=== PATIENT | male | born 2000 | race Caucasian/White ===

== ENCOUNTER 2021-01-21 03:39 | Emergency (ER) | payer OTHER ==
[2021-01-21 03:47] VITALS: BP 139/84; PULSE 71; RESP 19; TEMP 97.9
[2021-01-21 04:21] LABS: Basophils # (A) 0.1 k/uL (0-0.2); Basophils % (A) 1 %; Eosinophils # (A) 0.1 k/uL (0-0.7); Eosinophils % (A) 2 %; HCT 43.4 % (39.0-53.0); HGB 15.6 gm/dL (13.0-17.5); Lymphocytes # (A) 2.7 k/uL (1.0-4.8); Lymphocytes % (A) 45 %; MCH 31.5 pg (25.0-35.0); MCV 87.6 fL (80.0-100.0); Mean Platelet Volume 7.9; Monocytes # (A) 0.4 k/uL (0-1.0); Monocytes % (A) 7 %; Neutrophils # (A) 2.5 k/uL (1.3-7.7); Neutrophils % (A) 42 %; Platelet Count 194 k/uL (150-450); RBC 4.96 m/uL (4.30-5.90); RDW 13.8 % (11.5-15.5)
--- NOTE | 2021-01-21 04:34 | ED ---
GI Bleed HPI - General Chief complaint: GI Bleed Stated complaint: GI bleed Time Seen by Provider: 01/21/21 03:43 Source: patient, family Mode of arrival: ambulatory - History of Present Illness Initial comments: This patient is a 20-year-old man who presents to be evaluated for further blood per rectum. Patient states symptoms started 2 days ago. He had to strain to pass a bowel movement. Patient then noted that there was blood when he wiped. With the next bowel movements that he had he noticed there was more blood on the paper and that he had bloody each time he wiped. He is not having any abdominal pain. No perianal pain. He is not having signs or symptoms of anemia. No dyspnea, chest pain, palpitations, lightheadedness or syncope. MD complaint: blood on toilet paper Onset/Timin -: days(s) Severity scale (1-10): 0 Quality: painless Consistency: constant Improves with: none Worsens with: bowel movement Associated Symptoms: denies other symptoms Treatments Prior to Arrival: none - Related Data Allergies Allergy/AdvReac Type Severity Reaction Status Date / Time No Known Allergies Allergy Verified 01/21/21 03:47 Review of Systems ROS Statement: Those systems with pertinent positive or pertinent negative responses have been documented in the HPI. ROS Other: All systems not noted in ROS Statement are negative. Constitutional: Denies: fever, chills, weakness Respiratory: Denies: cough, dyspnea Cardiovascular: Denies: chest pain, palpitations, dyspnea on exertion, syncope Gastrointestinal: Reports: as per HPI. Denies: abdominal pain, vomiting, diarrhea, hematemesis, melena, hematochezia Genitourinary: Denies: dysuria, hematuria Musculoskeletal: Denies: back pain Skin: Denies: rash Neurological: Denies: headache, weakness Hematological/Lymphatic: Denies: easy bleeding Past Medical History Past Medical History: No Reported History History of Any Multi-Drug Resistant Organisms: None Reported Past Surgical History: Adenoidectomy, Tonsillectomy Past Psychological History: No Psychological Hx Reported Smoking Status: Never smoker Past Alcohol Use History: None Reported Past Drug Use History: None Reported General Exam General appearance: alert, in no apparent distress Respiratory exam: Present: normal lung sounds bilaterally. Absent: respiratory distress, wheezes, rales, rhonchi, stridor Cardiovascular Exam: Present: regular rate, normal rhythm, normal heart sounds. Absent: systolic murmur, diastolic murmur, rubs, gallop GI/Abdominal exam: Present: soft. Absent: distended, tenderness, guarding, rebound, rigid, organomegaly, mass, hernia Rectal exam: Present: normal rectal tone, other (There is an anal fissure present). Absent: black stool, bloody stool, fecal impaction, hemorrhoids, mass, tenderness, prostate tenderness, prostate enlargement Extremities exam: Present: normal inspection, normal capillary refill Back exam: Present: normal inspection. Absent: CVA tenderness (R), CVA tenderness (L) Neurological exam: Present: alert Skin exam: Present: warm, dry, intact, normal color. Absent: rash Course Vital Signs 01/21/21 03:44 Temperature 97.9 F Pulse Rate 71 Respiratory 19 Rate Blood Pressure 139/84 O2 Sat by Pulse 98 Oximetry Medical Decision Making - Lab Data Result diagrams: 01/21/21 04:12 Lab Results 01/21/21 Range/Units 04:12 WBC 6.0 (4.0-11.0) k/uL RBC 4.96 (4.30-5.90) m/uL Hgb 15.6 (13.0-17.5) gm/dL Hct 43.4 (39.0-53.0) % MCV 87.6 (80.0-100.0) fL MCH 31.5 (25.0-35.0) pg MCHC 36.0 (31.0-37.0) g/dL RDW 13.8 (11.5-15.5) % Plt Count 194 (150-450) k/uL MPV 7.9 Neutrophils % 42 % Lymphocytes % 45 % Monocytes % 7 % Eosinophils % 2 % Basophils % 1 % Neutrophils # 2.5 (1.3-7.7) k/uL Lymphocytes # 2.7 (1.0-4.8) k/uL Monocytes # 0.4 (0-1.0) k/uL Eosinophils # 0.1 (0-0.7) k/uL Basophils # 0.1 (0-0.2) k/uL Disposition Clinical Impression: Anal fissure Disposition: HOME SELF-CARE Condition: Good Instructions (If sedation given, give patient instructions): Gastrointestinal Bleeding (ED) Is patient prescribed a controlled substance at d/c from ED?: No Referrals: Javier Lopez DO [Primary Care Provider] - 1-2 days
== END 2021-01-21 04:47 | disposition home or self-care (01) ==
LOC: EC 03:39
DX: K60.2 Anal fissure, unspecified (principal)
CPT/HCPCS: 36415; 85025; 99284